=== PATIENT | male | born 1975 | race Caucasian/White ===

== ENCOUNTER 2017-08-28 19:21 | Emergency (ER) | payer MEDICAID ==
[~2017-08-28] VITALS: Ht 165.1 cm; Wt 68.0 kg
[2017-08-28 19:28] VITALS: BP 174/89
== END 2017-08-28 22:07 | disposition left against medical advice (07) ==
LOC: ER 19:40
DX: R55 Syncope and collapse (principal); F12.10 Cannabis abuse, uncomplicated; I10 Essential (primary) hypertension
CPT/HCPCS: 99283